=== PATIENT | male | born 1975 | race American Indian/Alaskan Native ===

== ENCOUNTER 2019-08-17 04:21 | Emergency (ER) | payer SELFPAY ==
[2019-08-17] MEDS ORDERED: NACL 0.9% 1000 ML 1,000 ML IV ONE (04:32)
[2019-08-17] MEDS ORDERED: NACL 0.9% 1000 ML 2,000 ML ONE (04:33)
[2019-08-17 04:45] LABS: Basophils # (Auto) 0.1 K/mm3 (0.0-0.1); Basophils % (Auto) 1.2 % (0.0-1.8); Eosinophils % (Auto) 0.4 % (0.0-4.3); Hematocrit 45.6 % (35.5-45.6); Hemoglobin 15.4 gm/dl (11.8-15.2); Lymphocytes # (Auto) 2.2 K/mm3 (1.2-5.4); Lymphocytes % (Auto) 25.4 % (13.4-35.0); Mean Corpuscular HGB Conc 34 % (32-34); Mean Corpuscular Volume 88 fl (84-94); Monocytes # (Auto) 0.7 K/mm3 (0.0-0.8); Platelet Count 274 K/mm3 (140-440); Red Blood Count 5.18 M/mm3 (3.65-5.03)
[2019-08-17] MEDS ORDERED: BOOSTRIX IM ONE (04:52)
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
[2019-08-17] MEDS ORDERED: PERCOCET 5/325 PO ONE (04:53)
[2019-08-17] MEDS ORDERED: XYLOCAINE 2%/EPI 1:100,000 INFILTRATI ONE (04:53)
[2019-08-17 04:55] LABS: INR 0.93 (0.87-1.13); Partial Thromboplastin Time 20.8 Sec. (24.2-36.6)
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
[2019-08-17 05:02] LABS: BUN/Creatinine Ratio 16; Blood Urea Nitrogen 16 mg/dL (9-20); Calcium 9.1 mg/dL (8.4-10.2); Hemolysis Index 37
[2019-08-17] MEDS ORDERED: XYLOCAINE 1% 20 mL ONE (05:05)
--- NOTE | 2019-08-17 05:21 | XRay Report ---
Left femur 4 views INDICATION: Left femur pain following injury IMPRESSION: Left femur is intact. No foreign body. Signer Name: Lennox Mustafa MD Signed: 08/17/2019 5:17 AM Workstation Name: [id number]
--- NOTE | 2019-08-17 05:22 | XRay Report ---
The left hand 2 views INDICATION: Left hand pain IMPRESSION: Prominent laceration overlying the index finger. No fracture, subluxation or foreign body . Signer Name: Lennox Mustafa MD Signed: 08/17/2019 5:17 AM Workstation Name: [id number]
[2019-08-17] MEDS ORDERED: ANCEF/NS 1 GM/50 ML 1 GM/50 ML BAG IV ONE (06:00)
[2019-08-17] MEDS ORDERED: XYLOCAINE 1% 20 mL INFILTRATI ONE (06:06)
[2019-08-17] MEDS ORDERED: MORPHINE ONE ×2 (07:34→08:08)
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
[2019-08-17] MEDS ORDERED: MORPHINE IV ONE (08:15)
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
[2019-08-17 12:16] VITALS: BP 120/67
== END 2019-08-17 12:16 | disposition home or self-care (01) ==
LOC: ED 04:21
DX: S61.211A Laceration without foreign body of left index finger without damage to nail, initial encounter (principal); S70.12XA Contusion of left thigh, initial encounter; S71.112A Laceration without foreign body, left thigh, initial encounter; F17.200 Nicotine dependence, unspecified, uncomplicated; X99.8XXA Assault by other sharp object, initial encounter; Y93.89 Activity, other specified; Y92.89 Other specified places as the place of occurrence of the external cause; Y99.8 Other external cause status
CPT/HCPCS: 12002; 36415; 73120; 73552; 73706; 80048; 82550; 85025; 85610; 85730; 86850; 86900; 86901; 90471; 90715; 96365; 96375; 99284; J0690; J2270; J7030; Q9967; 80320; G0480